=== PATIENT | male | born 1980 | race Caucasian/White ===

== ENCOUNTER → 2022-10-22 15:25 | Outpatient (CLI) | payer OTHER, SELFPAY ==
[2022-10-22 18:36] LABS: Basophils % 0.4 % (0.1-2.0); Eosinophils # 0.1 K/mm3 (0.0-0.4); Hematocrit 46.2 % (42.0-52.0); Hemoglobin 15.4 g/dL (14.1-18.0); Lymphocytes # 2.9 K/mm3 (0.7-4.5); Lymphocytes % 30.6 % (10-50); Mean Corpuscular HGB Conc 33.3 g/dL (31.8-35.4); Mean Corpuscular Hemoglobin 30.4 pg (27.0-31.2); Mean Corpuscular Volume 91.1 fl (80-94); Mean Platelet Volume 8.3 fl (7.4-10.4); Monocytes # 0.5 K/mm3 (0.1-1.0); Monocytes % 4.9 % (1.7-9.3); Neutrophils % 63.1 % (37.0-80.0); Platelet Count 262 K/mm3 (142-424); Red Blood Count 5.07 M/mm3 (4.60-6.20); White Blood Count 9.5 K/mm3 (4.8-10.8)
[2022-10-22 19:06] LABS: Alanine Aminotransferase 20 U/L (12-78); Albumin Level 4.5 g/dl (3.5-5.0); Albumin/Globulin Ratio 1.4 (1.1-1.8); Alkaline Phosphatase 77 U/L (38-126); Anion Gap 13.5 mEq/L (5-15); Aspartate Amino Transferase 29 U/L (17-59); Bilirubin,Total 0.6 mg/dl (0.2-1.3); Blood Urea Nitrogen 15 mg/dl (9-20); Calcium 8.8 mg/dl (8.4-10.2); Carbon Dioxide 31 mmol/L (22.0-30.0); Chloride 103 mmol/L (98-107); Chol/HDL Ratio 4.4 (1-3.5); Cholesterol 171 mg/dl (140-200); Estimated Glomerular Filt Rate 149 ml/min (>60); GFR (African American) 181 ML/MIN (>60); Globulin 3.2 g/dL (1.3-3.2); Glucose 81 mg/dl (74-100); HDL Cholesterol 39 mg/dl (40-60); Potassium 4.5 mmoL/L (3.5-5.1); Sodium 143 mmol/L (136-145); Total Protein,Serum 7.7 g/dl (6.3-8.2); Triglycerides 94 mg/dl (30-150); VLDL Cholesterol 19 mg/dL (0-40)
[2022-10-22 19:17] LABS: Direct LDL Cholesterol 104.89 mg/dL (100-129)
[2022-10-22 19:36] LABS: Thyroid Stimulating Hormone 1.84 uIU/mL (0.465-4.68)
== END ==
PROVIDERS: PCP Family Medicine; Visit Provider Family Medicine
DX: Z00.00 Encounter for general adult medical examination without abnormal findings (principal); Z79.899 Other long term (current) drug therapy
CPT/HCPCS: 80053; 80061; 84443; 85025

== ENCOUNTER → 2023-06-12 16:46 | Outpatient (CLI) | payer OTHER, SELFPAY | LOC: LAB.DROPOF 16:46 | PROVIDERS: PCP Family Medicine; Visit Provider Nurse Practitioner Family | DX: J02.9 Acute pharyngitis, unspecified (principal) | CPT/HCPCS: 87070 ==

== ENCOUNTER 2024-02-23 16:00 | Outpatient (CLI) | payer MEDICAID, SELFPAY ==
[2024-02-23 17:23] LABS: Basophils # 0.1 K/mm3 (0-0.2); Eosinophils # 0.1 K/mm3 (0.0-0.4); Eosinophils % 1.6 % (0.1-12.0); Hematocrit 59.2 % (42.0-52.0); Lymphocytes # 2.1 K/mm3 (0.7-4.5); Lymphocytes % 27.1 % (10-50); Mean Corpuscular HGB Conc 32.6 g/dL (31.8-35.4); Mean Corpuscular Hemoglobin 30.8 pg (27.0-31.2); Mean Corpuscular Volume 94.7 fl (80-94); Mean Platelet Volume 8.8 fl (7.4-10.4); Monocytes # 0.7 K/mm3 (0.1-1.0); Monocytes % 8.3 % (1.7-9.3); Neutrophils # 4.8 K/mm3 (1.8-7.8); Platelet Count 241 K/mm3 (142-424); Red Blood Count 6.25 M/mm3 (4.60-6.20); Red Cell Distribution Width 13.7 % (11.5-17.5); White Blood Count 7.8 K/mm3 (4.8-10.8)
[2024-02-23 18:35] LABS: Corrected White Blood Count 7.8 K/mm3 (4.8-10.8)
[2024-02-23 22:02] LABS: Alanine Aminotransferase 32 U/L (12-78); Albumin Level 4.3 g/dl (3.5-5.0); Albumin/Globulin Ratio 1.4 (1.1-1.8); Alkaline Phosphatase 58 U/L (38-126); Anion Gap 12.9 mEq/L (5-15); Aspartate Amino Transferase 43 U/L (17-59); Bilirubin,Total 0.6 mg/dl (0.2-1.3); Blood Urea Nitrogen 16 mg/dl (9-20); Carbon Dioxide 25 mmol/L (22.0-30.0); Chloride 106 mmol/L (98-107); Estimated Glomerular Filt Rate 124 ml/min (>60); GFR (African American) 150 ML/MIN (>60); Globulin 3.1 g/dL (1.3-3.2); Glucose 87 mg/dl (74-100); Potassium 4.9 mmoL/L (3.5-5.1); Sodium 139 mmol/L (136-145); Total Protein,Serum 7.4 g/dl (6.3-8.2)
[2024-02-23 23:17] LABS: Hemoglobin 19.5 g/dL (14.1-18.0)
[2024-02-25 11:25] LABS: Estradiol 52.3 pg/mL (7.6-42.6)
== END 2024-02-23 23:59 | disposition home or self-care (01) ==
LOC: LAB.DROPOF 02-24 09:55
PROVIDERS: PCP Family Medicine; Visit Provider Family Medicine
DX: R53.83 Other fatigue (principal); Z00.00 Encounter for general adult medical examination without abnormal findings
CPT/HCPCS: 80053; 82670; 85025

== ENCOUNTER 2024-03-08 16:51 | Outpatient (CLI) | payer MEDICAID, SELFPAY ==
[2024-03-08 16:47] LABS: Basophils # 0.1 K/mm3 (0-0.2); Basophils % 1.2 % (0.1-2.0); Eosinophils # 0.1 K/mm3 (0.0-0.4); Mean Corpuscular Volume 95.5 fl (80-94); Monocytes # 0.5 K/mm3 (0.1-1.0); White Blood Count 6.3 K/mm3 (4.8-10.8)
[2024-03-08 16:59] LABS: Eosinophils % 0.8 % (0.1-12.0); Hematocrit 57.6 % (42.0-52.0); Lymphocytes # 1.7 K/mm3 (0.7-4.5); Lymphocytes % 27.4 % (10-50); Mean Corpuscular HGB Conc 32.1 g/dL (31.8-35.4); Mean Corpuscular Hemoglobin 30.7 pg (27.0-31.2); Mean Platelet Volume 9.7 fl (7.4-10.4); Monocytes % 7.2 % (1.7-9.3); Neutrophils % 63.3 % (37.0-80.0); Platelet Count 256 K/mm3 (142-424)
[2024-03-08 17:05] LABS: Red Blood Count 6.02 M/mm3 (4.60-6.20)
[2024-03-08 17:07] LABS: Hemoglobin 18.5 g/dL (14.1-18.0)
[2024-03-08 17:36] LABS: Alanine Aminotransferase 33 U/L (12-78); Albumin Level 4.5 g/dl (3.5-5.0); Albumin/Globulin Ratio 1.5 (1.1-1.8); Alkaline Phosphatase 61 U/L (38-126); Anion Gap 12.8 mEq/L (5-15); Aspartate Amino Transferase 48 U/L (17-59); Bilirubin,Total 0.8 mg/dl (0.2-1.3); Blood Urea Nitrogen 20 mg/dl (9-20); Calcium 9.2 mg/dl (8.4-10.2); Carbon Dioxide 29 mmol/L (22.0-30.0); Chloride 104 mmol/L (98-107); Estimated Glomerular Filt Rate 82 ml/min (>60); GFR (African American) 99 ML/MIN (>60); Globulin 3.1 g/dL (1.3-3.2); Glucose 66 mg/dl (74-100); Potassium 4.8 mmoL/L (3.5-5.1); Sodium 141 mmol/L (136-145); Total Protein,Serum 7.6 g/dl (6.3-8.2)
[2024-03-10 12:39] LABS: Testosterone,Total 364 ng/dL (264-916)
[2024-03-14 23:08] LABS: Testosterone,Free 6.8 pg/mL (6.8-21.5)
== END 2024-03-08 23:59 | disposition home or self-care (01) ==
LOC: LAB.DROPOF 16:51
PROVIDERS: PCP Family Medicine; Visit Provider Family Medicine
DX: R89.9 Unspecified abnormal finding in specimens from other organs, systems and tissues (principal)
CPT/HCPCS: 80053; 84402; 84403; 85025

== ENCOUNTER 2024-04-14 16:54 | Outpatient (CLI) | payer MEDICAID, SELFPAY ==
[2024-04-14 17:22] LABS: Basophils # 0.1 K/mm3 (0-0.2); Basophils % 0.9 % (0.1-2.0); Eosinophils # 0.2 K/mm3 (0.0-0.4); Eosinophils % 2.3 % (0.1-12.0); Hematocrit 54.9 % (42.0-52.0); Lymphocytes % 27.3 % (10-50); Mean Corpuscular HGB Conc 33.5 g/dL (31.8-35.4); Mean Corpuscular Hemoglobin 30.7 pg (27.0-31.2); Mean Corpuscular Volume 91.7 fl (80-94); Mean Platelet Volume 8.4 fl (7.4-10.4); Monocytes # 0.6 K/mm3 (0.1-1.0); Monocytes % 8.1 % (1.7-9.3); Neutrophils # 4.5 K/mm3 (1.8-7.8); Neutrophils % 61.4 % (37.0-80.0); Platelet Count 230 K/mm3 (142-424); Red Blood Count 5.99 M/mm3 (4.60-6.20); Red Cell Distribution Width 13.7 % (11.5-17.5); White Blood Count 7.4 K/mm3 (4.8-10.8)
[2024-04-14 17:33] LABS: Hemoglobin 18.5 g/dL (14.1-18.0)
== END 2024-04-14 23:59 | disposition home or self-care (01) ==
LOC: LAB.DROPOF 16:55
PROVIDERS: PCP Family Medicine; Visit Provider Family Medicine
DX: D58.2 Other hemoglobinopathies (principal)
CPT/HCPCS: 85025

== ENCOUNTER 2024-04-28 10:59 | Outpatient (CLI) | payer MEDICAID, SELFPAY ==
--- NOTE | 2024-04-28 11:11 | XR_ITS ---
PROCEDURE INFORMATION: Exam: XR Left Shoulder Exam date and time: 04/28/2024 11:13 AM Age: 44 years old Clinical indication: Pain; Shoulder; Left; Additional info: Left shoulder pain TECHNIQUE: Imaging protocol: Radiologic exam of the left shoulder. Views: 2 or more views. COMPARISON: No relevant prior studies available. FINDINGS: Bones/joints: Normal. Soft tissues: Normal. IMPRESSION: No acute findings.
--- NOTE | 2024-04-28 11:11 | XR_ITS ---
PROCEDURE INFORMATION: Exam: XR Right Shoulder Exam date and time: 04/28/2024 11:13 AM Age: 44 years old Clinical indication: Pain; Shoulder; Right; Additional info: Right shoulder pain TECHNIQUE: Imaging protocol: Radiologic exam of the right shoulder. Views: 2 or more views. COMPARISON: No relevant prior studies available. FINDINGS: Bones/joints: Normal. Soft tissues: Normal. IMPRESSION: No acute findings.
== END 2024-04-28 23:59 | disposition home or self-care (01) ==
LOC: RAD 11:07
PROVIDERS: PCP Family Medicine; Visit Provider Surgery
DX: M25.512 Pain in left shoulder (principal); M25.511 Pain in right shoulder
CPT/HCPCS: 73030

== ENCOUNTER 2024-06-30 09:15 | Outpatient (CLI) | payer MEDICAID, SELFPAY ==
[2024-06-30 16:46] LABS: Basophils % 0.6 % (0.1-2.0); Eosinophils # 0.2 K/mm3 (0.0-0.4); Eosinophils % 2.1 % (0.1-12.0); Hematocrit 51.6 % (42.0-52.0); Lymphocytes % 28.4 % (10-50); Mean Corpuscular HGB Conc 32.9 g/dL (31.8-35.4); Mean Corpuscular Hemoglobin 29.8 pg (27.0-31.2); Mean Corpuscular Volume 90.5 fl (80-94); Mean Platelet Volume 9.8 fl (7.4-10.4); Monocytes # 0.7 K/mm3 (0.1-1.0); Monocytes % 9.5 % (1.7-9.3); Neutrophils # 4.2 K/mm3 (1.8-7.8); Neutrophils % 59.1 % (37.0-80.0); Platelet Count 255 K/mm3 (142-424); White Blood Count 7.2 K/mm3 (4.8-10.8)
[2024-06-30 17:24] LABS: Albumin Level 4.1 g/dl (3.5-5.0); Chloride 104 mmol/L (98-107); Potassium 4.4 mmoL/L (3.5-5.1); Sodium 137 mmol/L (136-145)
[2024-06-30 17:27] LABS: Alanine Aminotransferase 44 U/L (12-78); Albumin/Globulin Ratio 1.7 (1.1-1.8); Alkaline Phosphatase 76 U/L (38-126); Anion Gap 12.4 mEq/L (5-15); Aspartate Amino Transferase 56 U/L (17-59); Bilirubin,Total 0.5 mg/dl (0.2-1.3); Blood Urea Nitrogen 14 mg/dl (9-20); Carbon Dioxide 25 mmol/L (22.0-30.0); Estimated Glomerular Filt Rate 106 ml/min (>60); GFR (African American) 128 ML/MIN (>60); Globulin 2.4 g/dL (1.3-3.2); Total Protein,Serum 6.5 g/dl (6.3-8.2)
[2024-06-30 17:28] LABS: Calcium 8.8 mg/dl (8.4-10.2); Glucose 91 mg/dl (74-100)
[2024-07-01 08:14] LABS: Estradiol 66.2 pg/mL (7.6-42.6); Testosterone,Total >1500 ng/dL (264-916)
== END 2024-06-30 23:59 | disposition home or self-care (01) ==
LOC: LAB.DROPOF 07-01 11:03
PROVIDERS: PCP Family Medicine; Visit Provider Family Medicine
DX: E29.1 Testicular hypofunction (principal); Z79.890 Hormone replacement therapy
CPT/HCPCS: 80053; 82670; 84403; 85025

== ENCOUNTER 2024-07-25 13:34 | Outpatient (CLI) | payer MEDICAID, SELFPAY ==
[2024-07-25 14:29] LABS: Basophils # 0.1 K/mm3 (0-0.2); Basophils % 0.4 % (0.1-2.0); Eosinophils # 0.1 K/mm3 (0.0-0.4); Eosinophils % 0.8 % (0.1-12.0); Hematocrit 51.1 % (42.0-52.0); Lymphocytes # 2.5 K/mm3 (0.7-4.5); Lymphocytes % 18.9 % (10-50); Mean Corpuscular HGB Conc 33.3 g/dL (31.8-35.4); Mean Corpuscular Hemoglobin 28.8 pg (27.0-31.2); Mean Corpuscular Volume 86.5 fl (80-94); Mean Platelet Volume 9.5 fl (7.4-10.4); Monocytes # 1.3 K/mm3 (0.1-1.0); Monocytes % 9.8 % (1.7-9.3); Neutrophils # 9.2 K/mm3 (1.8-7.8); Neutrophils % 69.6 % (37.0-80.0); Platelet Count 314 K/mm3 (142-424); Red Blood Count 5.91 M/mm3 (4.60-6.20); Red Cell Distribution Width 12.6 % (11.5-17.5); White Blood Count 13.2 K/mm3 (4.8-10.8)
[2024-07-25 17:48] LABS: Prostate Specific Ag Screen 0.6 ng/ml (0.0-4.0)
[2024-07-26 03:42] LABS: FSH <0.3 mIU/mL (1.5-12.4); LH <0.3 mIU/mL (1.7-8.6); Prolactin 16.3 ng/mL (3.9-22.7); Testosterone,Total 1041 ng/dL (264-916)
[2024-07-26 08:13] LABS: Sex Hormone Binding Globulin 12.2 nmol/L (16.5-55.9)
== END 2024-07-25 23:59 | disposition home or self-care (01) ==
LOC: LAB 13:35
PROVIDERS: PCP Family Medicine; Visit Provider Urology
DX: N52.9 Male erectile dysfunction, unspecified (principal)
CPT/HCPCS: 36415; 83001; 83002; 84146; 84270; 84403; 85025; G0103